=== PATIENT | male | born 1980 | race Caucasian/White ===

== ENCOUNTER 2016-11-28 09:11 | Emergency (ER) | payer OTHER ==
[~2016-11-28] VITALS: Ht 182.9 cm; Wt 96.6 kg
[~2016-11-28 09:11] MED LIST: ADVIL200 MG PO; ALLERGY MEDICATION PO; ZOFRAN4 MG PO
[2016-11-28 09:53] LABS: HEMATOCRIT 42.3 % (38.0-50.0); MCH 26.1 PG (29.0-34.0); MCHC 32.9 G/DL (30.0-36.0); MCV 79.4 FL (86-99); MEAN PLAT.VOLUME 10.1 uM^3 (9.0-12.4); PLATELET COUNT 199 K/uL (156-360); RBC DIS.WIDTH-CV 12.4 % (11.8-14.6); RBC DIS.WIDTH-SD 35.3 % (39-53); RED BLOOD COUNT 5.33 M/uL (4.00-5.50); WHITE BLOOD COUNT 4.3 K/uL (4.1-10.2)
[2016-11-28 10:00] LABS: CHLORIDE 102 mEq/L (99-109); POTASSIUM 3.8 mEq/L (3.7-5.4); SODIUM 139 mEq/L (136-147)
[2016-11-28 10:02] LABS: GLUCOSE 92 mg/dL (70-99)
[2016-11-28 10:04] LABS: ANION GAP 10 MEQ/L (2-14); TOTAL BILIRUBIN 1.5 mg/dL (0.0-1.0)
[2016-11-28 10:06] LABS: ALKALINE PHOSPHATASE 109 IU/L (3-129); GFR ESTIMATE (CALCULATED) > 59 mL/min/
[2016-11-28 10:07] LABS: UREA NITROGEN (BUN) 18 mg/dL (9-23)
[2016-11-28 10:09] LABS: LIPASE 18 U/L (1.0-51.0)
[2016-11-28 11:19] LABS: EOSINOPHIL (%) 0.2 % (0-5); HEMATOCRIT 42.7 % (38.0-50.0); IMMATURE GRANULOCYTE (%) 0.2 % (0.0-0.7); INSTRUMENT ABS NEUTROPHIL CT 2.4 K/uL; LYMPHOCYTE COUNT 1.3 K/uL (1.0-2.8); MCH 26.5 PG (29.0-34.0); MCHC 33.3 G/DL (30.0-36.0); MCV 79.7 FL (86-99); MEAN PLAT.VOLUME 10.1 uM^3 (9.0-12.4); MONOCYTE (%) 15.3 % (3-12); MONOCYTE COUNT 0.7 K/uL (0-0.8); NEUTROPHIL (%) 55.2 % (45-76); NEUTROPHIL COUNT 2.4 K/uL (1.8-6.4); PLATELET COUNT 209 K/uL (156-360); RBC DIS.WIDTH-CV 12.5 % (11.8-14.6); RBC DIS.WIDTH-SD 35.8 % (39-53); RED BLOOD COUNT 5.36 M/uL (4.00-5.50); WHITE BLOOD COUNT 4.4 K/uL (4.1-10.2)
[2016-11-28] MEDS ORDERED: SUCRALFATE1 GM PO (12:46)
[2016-11-28] MEDS ORDERED: DEXILANT60 MG PO (12:47)
[2016-11-28] MEDS ORDERED: ZYRTEC PO (12:48)
[2016-11-28 13:01] LABS: ADD MIUA? NO; BILIRUBIN NEGATIVE; BLOOD NEGATIVE; COLOR YELLOW ((YELLOW)); GLUCOSE (STRIP) NEGATIVE; KETONES 20; LEUKOCYTES NEGATIVE; NITRITE NEGATIVE; PROTEIN (STRIP) NEGATIVE; UCUL ADDED? NO
[2016-11-28 13:17] LABS: SPECIFIC GRAVITY 1.072 (1.000-1.030)
[2016-11-28] MEDS ORDERED: ZOFRAN ODT4 MG PO (13:23)
[2016-11-28] MEDS ORDERED: BENTYL20 MG PO (13:23)
[2016-11-28 13:54] VITALS: BP 135/70
== END 2016-11-28 13:56 | disposition home or self-care (01) ==
LOC: EME 09:11
PROVIDERS: Physician Assistant
DX: R11.2 Nausea with vomiting, unspecified (principal); R19.7 Diarrhea, unspecified; E86.0 Dehydration; R10.813 Right lower quadrant abdominal tenderness
CPT/HCPCS: 74177; 80053; 81003; 83690; 85025; 85025 91; 85027; 87493; 87506; 99281; 99285; J1885; J2405; J7030

== ENCOUNTER 2017-09-04 06:33 | Emergency (ER) | payer OTHER ==
[~2017-09-04] VITALS: Ht 182.9 cm; Wt 89.0 kg
[~2017-09-04 06:33] MED LIST changes: +BENTYL20 MG PO; +DEXILANT60 MG PO; +SUCRALFATE1 GM PO; +ZOFRAN ODT4 MG PO; +ZYRTEC PO
[2017-09-04 07:03] LABS: BASOPHIL (%) 0.3 % (0-1); EOSINOPHIL (%) 0.1 % (0-5); HEMATOCRIT 43.6 % (38.0-50.0); HEMOGLOBIN 14.9 G/DL (12.5-16.6); IMMATURE GRANULOCYTE (%) 0.3 % (0.0-0.7); LYMPHOCYTE (%) 6.6 % (15-42); LYMPHOCYTE COUNT 0.5 K/uL (1.0-2.8); MCH 27.2 PG (29.0-34.0); MCHC 34.2 G/DL (30.0-36.0); MCV 79.7 FL (86-99); MONOCYTE COUNT 0.6 K/uL (0-0.8); NEUTROPHIL (%) 85.7 % (45-76); NEUTROPHIL COUNT 6.9 K/uL (1.8-6.4); PLATELET COUNT 207 K/uL (156-360); RBC DIS.WIDTH-CV 13.7 % (11.8-14.6); RBC DIS.WIDTH-SD 39.4 % (39-53); RED BLOOD COUNT 5.47 M/uL (4.00-5.50)
[2017-09-04 07:40] LABS: ALBUMIN 4.5 G/DL (3.2-4.8); CHLORIDE 104 MEQ/L (99-109); POTASSIUM 3.9 MEQ/L (3.7-5.4); SODIUM 139 MEQ/L (136-147); TOTAL BILIRUBIN 1.3 MG/DL (0.0-1.0)
[2017-09-04 07:46] LABS: ALKALINE PHOSPHATASE 94 IU/L (3-129); ALT (GPT) 12 IU/L (3-49); AST (GOT) 18 IU/L (2-34); CREATININE 1.1 MG/DL (0.6-1.3); GFR ESTIMATE (CALCULATED) > 59 mL/min/ (58.99-99999); GLUCOSE 116 mg/dL (70-99); TOTAL PROTEIN 7.6 G/DL (6.4-8.3); UREA NITROGEN (BUN) 21 mg/dL (9-23)
[2017-09-04 11:00] VITALS: BP 116/69
[2017-09-04] MEDS ORDERED: ZOFRAN4 MG PO (11:08)
[2017-09-04] MEDS ORDERED: BENTYL20 MG PO (11:09)
== END 2017-09-04 11:28 | disposition home or self-care (01) ==
LOC: EME 06:33
PROVIDERS: Emergency Medicine
DX: R11.2 Nausea with vomiting, unspecified (principal); R19.7 Diarrhea, unspecified; R10.13 Epigastric pain
CPT/HCPCS: 74177; 80053; 85025; 99281; 99285; J1885; J2405; J7030